=== PATIENT | male | born 1950 | race Caucasian/White ===

== ENCOUNTER 2016-04-15 11:31 | Observation (INO) | payer MEDICARE, BC ==
[2016-04-15] VITALS (13 sets, daily range): BP systolic 78–151; BP diastolic 51–88; PULSE 49–74; TEMP 97.3–98.5
[~2016-04-15] VITALS: Ht 182.9 cm; Wt 89.0 kg
[2016-04-15] MEDS ORDERED: HYGROTON 2525 MG/TAB PO (12:33)
[2016-04-15] MEDS ORDERED: LOTREL 10 MG-401 CAP PO (12:33)
[2016-04-15] MEDS ORDERED: ASPIRIN E.C. 8181 MG PO (12:34)
[2016-04-16] VITALS (7 sets, daily range): BP systolic 107–156; BP diastolic 62–85; PULSE 59–87; TEMP 96.8–98.6
[2016-04-16 06:42] LABS: HEMATOCRIT 40.4 % (42.0-52.0); HEMOGLOBIN 13.7 g/dl (13.5-18.0); MEAN CELL VOLUME 91 fl (80.0-100.0); MEAN CORPUSCULAR HEMOGLOBIN 31 pg (27.0-31.0); MEAN CORPUSCULAR HGB CONC 34 g/dl (33.0-37.0); MEAN PLATELET VOLUME 10.4 fl (7.4-10.4); PLATELET COUNT 159 K/mm3 (130-400); RED BLOOD COUNT 4.45 M/mm3 (4.20-5.60); REDCELL DISTRIBUTION WIDTH-CV 12.4 % (11.5-14.5); WHITE BLOOD COUNT 8.7 K/mm3 (4.8-10.8)
[2016-04-17 05:11] VITALS: BP 120/80; PULSE 63; TEMP 98.2
[2016-04-17] MEDS ORDERED: PYRIDIUM 100MG100 MG PO (11:15)
[2016-04-17] MEDS ORDERED: NORCO 325 MG-51 TAB PO (11:15)
== END 2016-04-17 12:05 | disposition home or self-care (01) ==
LOC: SDCO 11:31 → SURG 16:20 → SDCO 04-16 09:59 → SURG 04-16 10:00
PROVIDERS: Urology
DX: N40.1 Benign prostatic hyperplasia with lower urinary tract symptoms (principal); R39.12 Poor urinary stream; I10 Essential (primary) hypertension
CPT/HCPCS: OP; G0378; J0690; J2250; J2704; J7120